=== PATIENT | female | born 1980 | race Caucasian/White ===

== ENCOUNTER 2020-11-21 08:29 | Outpatient (CLI) | payer OTHER ==
--- NOTE | 2020-11-21 09:53 | MRI ---
LEFT ANKLE MRI WITHOUT IV CONTRAST: Date: 11/21/2020 HISTORY: Sprained left ankle, twisting injury in July 2020. FINDINGS: There is no intact anterior talofibular ligament. The calcaneofibular ligament region is indistinct w ith some increased signal, evidence for sprain. There is also abnormal high signal in the deep fibers of the deltoid ligament, evidence for sprain. The flexor, extensor, and peroneus tendons appear inta ct. No evidence for talar dome osteochondral lesion. Achilles tendon and plantar fascia unremarkable. Sinus tarsi and spring ligament region unremarkable. No significant abnormal marrow signal. Minimal heterogeneous red marrow changes in the distal tibia. Impression: Evidence for remote tear/very high grade sprain anterior talofibular ligament with evidence for spra in involving the calcaneofibular ligament and the deep fibers of the deltoid ligament as well. Syndes motic ligaments appear intact. No significant abnormal marrow signal or other acute process. POS: AH
== END 2020-11-21 08:30 | disposition home or self-care (01) ==
LOC: TBSIIMAG 08:29
PROVIDERS: ATTEND Orthopaedic Surgery
DX: S93.412D Sprain of calcaneofibular ligament of left ankle, subsequent encounter (principal); S93.422D Sprain of deltoid ligament of left ankle, subsequent encounter